=== PATIENT | male | born 1965 | race Two or more races ===

== ENCOUNTER 2016-09-22 12:28 | Emergency (ER) | payer OTHER, SELFPAY ==
[~2016-09-22] VITALS: Ht 170.2 cm; Wt 127.8 kg
[2016-09-22] MEDS ORDERED: IBUP200T64 PO (13:40)
[2016-09-22] MEDS ORDERED: ASPI325T4 PO (13:40)
[2016-09-22] MEDS ORDERED: MULT-750 PO (13:41)
[2016-09-22] MEDS ORDERED: ONDANSETRON 2MG/ML, 2ML IVPush ONE (14:30)
[2016-09-22] MEDS ORDERED: SODIUM CHLORIDE 0.9% 1,000ML IVBOLUS ONE (14:30)
[2016-09-22 14:35] LABS: ASPARTATE AMINO TRANSFERASE 20 U/L (15-37); BLOOD UREA NITROGEN 15 mg/dL (7-18)
[2016-09-22] MEDS ORDERED: POTASSIUM CHLORIDE 20 MEQ TAB.ER.PRT ONE (14:48)
[2016-09-22] MEDS ORDERED: POTASSIUM CHLORIDE 20 MEQ TAB.ER.PRT PO ONE (15:00)
[2016-09-22 15:37] VITALS: BP 177/126
== END 2016-09-22 15:40 | disposition home or self-care (01) ==
LOC: ED 15:34
DX: R00.2 Palpitations (principal); E87.6 Hypokalemia; I10 Essential (primary) hypertension
CPT/HCPCS: 36415; 71020; 80048; 80076; 82040; 83690; 85025; 93005; 99285